=== PATIENT | female | born 1990 | race African-American/Black ===

== ENCOUNTER 2021-05-23 05:24 | Emergency (ER) | payer OTHER ==
[~2021-05-23] VITALS: Ht 157.5 cm; Wt 59.0 kg
[2021-05-23 05:48] VITALS: BP 120/65
--- NOTE | 2021-05-23 05:55 | NUR ---
HERE FOR PRE-BOOK. NO NURSING INTERVENTION REQUIRED
--- NOTE | 2021-05-23 05:58 | NUR ---
Patient discharged with v/s stable. Written and verbal after care instructions given and explained. Patient verbalized understanding. Police with steady gait. All questions addressed prior to discharge. Advised to follow up with PMD.
== END 2021-05-23 05:58 ==
LOC: MED 05:24
DX: Z04.1 Encounter for examination and observation following transport accident (principal); V89.2XXA Person injured in unspecified motor-vehicle accident, traffic, initial encounter; Y93.89 Activity, other specified; Y92.89 Other specified places as the place of occurrence of the external cause; Y99.8 Other external cause status
CPT/HCPCS: 99283